=== PATIENT | male | born 1955 | race Caucasian/White ===

== ENCOUNTER 2018-03-21 15:53 | Emergency (ER) | payer OTHER ==
[~2018-03-21] VITALS: Ht 160 cm; Wt 59.0 kg
[~2018-03-21 15:53] MED LIST: Bactrim Ds Tab1 EACH PO; CLIN300 PO; DOXY100 PO; Keflex500 MG PO; MECL25 PO; METF500 PO; NAPR500 PO; OXYACE5T PO; TRAM50 PO
[2018-03-21 16:37] LABS: BASOPHILS ABSOLUTE AUTO 0.02 K/mm3 (0.00-0.23); BASOPHILS PERCENT AUTO 0 % (0-2); EOSINOPHILS ABSOLUTE AUTO 0.21 K/mm3 (0.00-0.68); EOSINOPHILS PERCENT AUTO 4 % (0-6); Hemoglobin 14.5 g/dL (13.5-17.5); IMMATURE GRAN ABSOLUTE AUTO 0.02 K/mm3 (0.00-0.10); IMMATURE GRAN PERCENT AUTO 0 % (0-1); LYMPHOCYTES ABSOLUTE AUTO 1.15 K/mm3 (0.84-5.20); LYMPHOCYTES PERCENT AUTO 20 % (21-46); MONOCYTES ABSOLUTE AUTO 0.85 K/mm3 (0.16-1.47); MONOCYTES PERCENT AUTO 15 % (4-13); Mean Corpuscular HGB 31.2 pg (26.0-34.0); Mean Corpuscular HGB Conc 34.5 g/dL (31.5-36.5); Mean Corpuscular Volume 90 fL (80-100); Mean Platelet Volume 10.5 fL (9.1-12.4); NEUTROPHILS ABSOLUTE AUTO 3.61 K/mm3 (1.96-9.15); NEUTROPHILS PERCENT AUTO 62 % (41-73); Platelet Count 218 K/mm3 (150-400); RDW Standard Deviation 39.8 fL (35.1-46.3); Red Blood Cell Count 4.65 M/mm3 (4.30-5.90); White Blood Cell Count 5.86 K/mm3 (4.00-11.30)
[2018-03-21 16:57] LABS: Alanine Aminotransfer (ALT/SGP 36 U/L (12-78); Albumin, Blood 3.8 g/dL (3.4-5.0); Albumin/Globulin Ratio 1.2 (0.8-1.8); Alk Phos 88 U/L (50-136); Anion Gap 8 mmol/L (6-16); Aspartate Aminotrans (AST/SGOT 32 U/L (12-37); Bilirubin, Total 0.4 mg/dL (0.1-1.0); Blood Urea Nitrogen 14 mg/dL (8-24); Bun/Creatinine Ratio 12.3 (12.0-20.0); CO2, Blood 25 mmol/L (21-32); Calcium, Blood 8.6 mg/dL (8.5-10.1); Chloride, Blood 107 mmol/L (98-108); Creatinine, Blood 1.14 mg/dL (0.60-1.20); Globulin, Blood 3.3 g/dL (2.2-4.0); Glomerular Filtration Rate >60 (60-); Glucose, Blood 100 mg/dL (70-99); Sodium, Blood 140 mmol/L (136-145); Total Protein, Blood 7.1 g/dL (6.4-8.2); Troponin I <0.015 ng/mL (0.000-0.040)
[2018-03-21] MEDS ORDERED: ALBU90OI INH (18:27)
[2018-03-22] MEDS ORDERED: Prednisone50 MG PO (00:59)
== END 2018-03-21 18:55 | disposition home or self-care (01) ==
LOC: ER 15:53
PROVIDERS: Physician Assistant
DX: J06.9 Acute upper respiratory infection, unspecified (principal); E11.9 Type 2 diabetes mellitus without complications; F17.200 Nicotine dependence, unspecified, uncomplicated; Z79.51 Long term (current) use of inhaled steroids
CPT/HCPCS: 36415; 71046; 80053; 83880; 84484; 85025; 93005; 93010; 94640; 99284

== ENCOUNTER 2018-08-15 09:56 | Day surgery (SDC) | payer OTHER ==
[~2018-08-15] VITALS: Ht 160 cm; Wt 508.0 kg
[~2018-08-15 09:56] MED LIST changes: +ALBU90OI INH; +Prednisone50 MG PO
[2018-08-15] MEDS ORDERED: DULERA 100 MCG/13 GM INH (10:51)
[2018-08-15] MEDS ORDERED: SERT25 PO (10:52)
[2018-08-15] MEDS ORDERED: QUETIAPINE FUMA50 MG PO (10:52)
== END 2018-08-15 11:52 | disposition home or self-care (01) ==
LOC: ORSCSDS 09:56
PROVIDERS: Internal Medicine Gastroenterology
PROC: 0DBK8ZX Excision of Ascending Colon, Via Natural or Artificial Opening Endoscopic, Diagnostic (ICD-10-PCS; principal; 2018-08-15 11:30)
DX: Z12.11 Encounter for screening for malignant neoplasm of colon (principal); D12.2 Benign neoplasm of ascending colon; K64.8 Other hemorrhoids; B19.20 Unspecified viral hepatitis C without hepatic coma; J44.9 Chronic obstructive pulmonary disease, unspecified; E11.9 Type 2 diabetes mellitus without complications; F20.9 Schizophrenia, unspecified; F43.10 Post-traumatic stress disorder, unspecified; F17.210 Nicotine dependence, cigarettes, uncomplicated; Z79.899 Other long term (current) drug therapy
CPT/HCPCS: 82947; J7120

== ENCOUNTER 2019-02-07 19:10 | Emergency (ER) | payer OTHER ==
[~2019-02-07] VITALS: Ht 160 cm; Wt 56.7 kg
[~2019-02-07 19:10] MED LIST changes: +DULERA 100 MCG/13 GM INH; +Percocet 5-3251 EACH PO; +QUETIAPINE FUMA50 MG PO; +SERT25 PO
[2019-02-07 21:01] LABS: BASOPHILS ABSOLUTE AUTO 0.02 K/mm3 (0.00-0.23); BASOPHILS PERCENT AUTO 0 % (0-2); EOSINOPHILS ABSOLUTE AUTO 0.15 K/mm3 (0.00-0.68); EOSINOPHILS PERCENT AUTO 1 % (0-6); Hematocrit 39.6 % (37.0-53.0); Hemoglobin 12.9 g/dL (13.5-17.5); IMMATURE GRAN ABSOLUTE AUTO 0.04 K/mm3 (0.00-0.10); IMMATURE GRAN PERCENT AUTO 0 % (0-1); LYMPHOCYTES ABSOLUTE AUTO 1.11 K/mm3 (0.84-5.20); LYMPHOCYTES PERCENT AUTO 10 % (21-46); MONOCYTES ABSOLUTE AUTO 1.19 K/mm3 (0.16-1.47); MONOCYTES PERCENT AUTO 11 % (4-13); Mean Corpuscular HGB 30.4 pg (26.0-34.0); Mean Corpuscular HGB Conc 32.6 g/dL (31.5-36.5); Mean Corpuscular Volume 93 fL (80-100); Mean Platelet Volume 10.4 fL (9.1-12.4); NEUTROPHILS ABSOLUTE AUTO 8.28 K/mm3 (1.96-9.15); NEUTROPHILS PERCENT AUTO 77 % (41-73); Platelet Count 239 K/mm3 (150-400); RDW Coefficient Variation 12.1 % (11.7-14.2); RDW Standard Deviation 41.8 fL (35.1-46.3); Red Blood Cell Count 4.25 M/mm3 (4.30-5.90); White Blood Cell Count 10.79 K/mm3 (4.00-11.30)
[2019-02-07 21:23] LABS: Alanine Aminotransfer (ALT/SGP 25 U/L (12-78); Albumin, Blood 3.5 g/dL (3.4-5.0); Alk Phos 76 U/L (50-136); Anion Gap 9 mmol/L (6-16); Aspartate Aminotrans (AST/SGOT 20 U/L (12-37); Bilirubin, Total 0.6 mg/dL (0.1-1.0); Blood Urea Nitrogen 24 mg/dL (8-24); Bun/Creatinine Ratio 30.4 (12.0-20.0); CO2, Blood 24 mmol/L (21-32); Calcium, Blood 8.8 mg/dL (8.5-10.1); Chloride, Blood 104 mmol/L (98-108); Creatinine, Blood 0.79 mg/dL (0.60-1.20); Globulin, Blood 3.6 g/dL (2.2-4.0); Glomerular Filtration Rate >60 (60-); Glucose, Blood 160 mg/dL (70-99); Potassium, Blood 3.9 mmol/L (3.5-5.5); Sodium, Blood 137 mmol/L (136-145); Total Protein, Blood 7.1 g/dL (6.4-8.2)
[2019-02-07] MEDS ORDERED: CEPH500 PO (21:37)
== END 2019-02-07 21:54 | disposition home or self-care (01) ==
LOC: ER 19:10
PROVIDERS: Physician Assistant
DX: L03.115 Cellulitis of right lower limb (principal); V17.4XXA Pedal cycle driver injured in collision with fixed or stationary object in traffic accident, initial encounter; Z88.8 Allergy status to other drugs, medicaments and biological substances; Z79.899 Other long term (current) drug therapy; E11.9 Type 2 diabetes mellitus without complications; F17.210 Nicotine dependence, cigarettes, uncomplicated
CPT/HCPCS: 80053; 85025; 85651; 86140; 96365; 99283-25; J0690

== ENCOUNTER 2019-04-22 20:13 | Emergency (ER) | payer OTHER ==
[~2019-04-22] VITALS: Ht 160 cm; Wt 55.8 kg
[~2019-04-22 20:13] MED LIST changes: +CEPH500 PO
[2019-04-22 21:57] LABS: BASOPHILS ABSOLUTE AUTO 0.04 K/mm3 (0.00-0.23); BASOPHILS PERCENT AUTO 1 % (0-2); EOSINOPHILS ABSOLUTE AUTO 0.38 K/mm3 (0.00-0.68); EOSINOPHILS PERCENT AUTO 6 % (0-6); Hemoglobin 14.5 g/dL (13.5-17.5); IMMATURE GRAN ABSOLUTE AUTO 0.01 K/mm3 (0.00-0.10); IMMATURE GRAN PERCENT AUTO 0 % (0-1); LYMPHOCYTES ABSOLUTE AUTO 2.17 K/mm3 (0.84-5.20); LYMPHOCYTES PERCENT AUTO 32 % (21-46); MONOCYTES ABSOLUTE AUTO 1.04 K/mm3 (0.16-1.47); MONOCYTES PERCENT AUTO 15 % (4-13); Mean Corpuscular HGB 30.6 pg (26.0-34.0); Mean Corpuscular HGB Conc 32.2 g/dL (31.5-36.5); Mean Corpuscular Volume 95 fL (80-100); Mean Platelet Volume 10.9 fL (9.1-12.4); NEUTROPHILS ABSOLUTE AUTO 3.16 K/mm3 (1.96-9.15); NEUTROPHILS PERCENT AUTO 47 % (41-73); Platelet Count 187 K/mm3 (150-400); RDW Coefficient Variation 12.6 % (11.7-14.2); RDW Standard Deviation 44.5 fL (35.1-46.3); Red Blood Cell Count 4.74 M/mm3 (4.30-5.90)
[2019-04-22 22:35] LABS: Alanine Aminotransfer (ALT/SGP 46 U/L (12-78); Albumin, Blood 3.5 g/dL (3.4-5.0); Alk Phos 84 U/L (50-136); Anion Gap 7 mmol/L (6-16); Aspartate Aminotrans (AST/SGOT 50 U/L (12-37); Bilirubin, Total 0.4 mg/dL (0.1-1.0); Blood Urea Nitrogen 23 mg/dL (8-24); Bun/Creatinine Ratio 27.3 (12.0-20.0); CO2, Blood 25 mmol/L (21-32); Calcium, Blood 8.8 mg/dL (8.5-10.1); Chloride, Blood 109 mmol/L (98-108); Creatinine, Blood 0.84 mg/dL (0.60-1.20); Globulin, Blood 3.6 g/dL (2.2-4.0); Glomerular Filtration Rate >60 (60-); Glucose, Blood 127 mg/dL (70-99); Potassium, Blood 5.3 mmol/L (3.5-5.5); Sodium, Blood 141 mmol/L (136-145); Total Protein, Blood 7.1 g/dL (6.4-8.2); Troponin I <0.015 ng/mL (0.000-0.040)
[2019-04-23] MEDS ORDERED: LORA2 PO (00:28)
[2019-04-23] MEDS ORDERED: CETI5 PO (01:36)
[2019-04-23] MEDS ORDERED: BENZ100A PO (01:36)
== END 2019-04-23 01:49 | disposition home or self-care (01) ==
LOC: ER 20:13
PROVIDERS: Emergency Medicine
DX: J40 Bronchitis, not specified as acute or chronic (principal); J30.2 Other seasonal allergic rhinitis; Z88.8 Allergy status to other drugs, medicaments and biological substances; Z79.899 Other long term (current) drug therapy; E11.9 Type 2 diabetes mellitus without complications; F17.210 Nicotine dependence, cigarettes, uncomplicated
CPT/HCPCS: 36415; 71046; 80053; 84484; 85025; 94640; 96374; 99285-25; J2930

== ENCOUNTER 2020-06-20 15:58 | Emergency (ER) | payer OTHER ==
[~2020-06-20] VITALS: Ht 160 cm; Wt 56.7 kg
[~2020-06-20 15:58] MED LIST changes: +BENZ100A PO; +CETI5 PO; +LORA2 PO; +Permethrin60 GM TOP
[2020-06-20] MEDS ORDERED: ALBENDAZOLE200 MG PO (16:57)
[2020-06-20] MEDS ORDERED: Permethrin60 GM TOP (16:57)
[2020-07-02] MEDS ORDERED: OXYC5 PO (11:02)
== END 2020-06-20 17:09 | disposition home or self-care (01) ==
LOC: ER 15:58
DX: B76.9 Hookworm disease, unspecified (principal); B86 Scabies; F17.210 Nicotine dependence, cigarettes, uncomplicated; Z88.8 Allergy status to other drugs, medicaments and biological substances
CPT/HCPCS: 99282

== ENCOUNTER 2020-10-12 13:02 | Inpatient (IN) | payer OTHER ==
[~2020-10-12] VITALS: Ht 160 cm; Wt 56.7 kg
[~2020-10-12 13:02] MED LIST changes: +ALBENDAZOLE200 MG PO; +OXYC5 PO
[2020-10-12 13:36] LABS: BASOPHILS ABSOLUTE AUTO 0.04 K/mm3 (0.00-0.23); BASOPHILS PERCENT AUTO 0 % (0-2); EOSINOPHILS ABSOLUTE AUTO 0.01 K/mm3 (0.00-0.68); EOSINOPHILS PERCENT AUTO 0 % (0-6); Hematocrit 37.4 % (37.0-53.0); Hemoglobin 12.8 g/dL (13.5-17.5); IMMATURE GRAN ABSOLUTE AUTO 0.07 K/mm3 (0.00-0.10); IMMATURE GRAN PERCENT AUTO 0 % (0-1); LYMPHOCYTES ABSOLUTE AUTO 1.09 K/mm3 (0.84-5.20); LYMPHOCYTES PERCENT AUTO 7 % (21-46); MONOCYTES ABSOLUTE AUTO 1.71 K/mm3 (0.16-1.47); MONOCYTES PERCENT AUTO 11 % (4-13); Mean Corpuscular HGB 30.9 pg (26.0-34.0); Mean Corpuscular HGB Conc 34.2 g/dL (31.5-36.5); Mean Corpuscular Volume 90 fL (80-100); Mean Platelet Volume 10.1 fL (9.1-12.4); NEUTROPHILS ABSOLUTE AUTO 13.26 K/mm3 (1.96-9.15); NEUTROPHILS PERCENT AUTO 82 % (41-73); Platelet Count 232 K/mm3 (150-400); RDW Coefficient Variation 11.8 % (11.7-14.2); RDW Standard Deviation 39.2 fL (35.1-46.3); Red Blood Cell Count 4.14 M/mm3 (4.30-5.90); White Blood Cell Count 16.18 K/mm3 (4.00-11.30)
[2020-10-12 14:04] LABS: Alanine Aminotransfer (ALT/SGP 26 U/L (12-78); Albumin, Blood 3.4 g/dL (3.4-5.0); Albumin/Globulin Ratio 1.1 (0.8-1.8); Alk Phos 86 U/L (50-136); Anion Gap 6 mmol/L (6-16); Aspartate Aminotrans (AST/SGOT 24 U/L (12-37); Bilirubin, Total 1.1 mg/dL (0.1-1.0); Blood Urea Nitrogen 15 mg/dL (8-24); Bun/Creatinine Ratio 16.9 (12.0-20.0); CO2, Blood 25 mmol/L (21-32); Calcium, Blood 8.3 mg/dL (8.5-10.1); Chloride, Blood 103 mmol/L (98-108); Creatinine, Blood 0.89 mg/dL (0.60-1.20); Globulin, Blood 3.2 g/dL (2.2-4.0); Glomerular Filtration Rate >60 (60-); Glucose, Blood 129 mg/dL (70-99); Potassium, Blood 4.2 mmol/L (3.5-5.5); Sodium, Blood 134 mmol/L (136-145); Total Protein, Blood 6.6 g/dL (6.4-8.2)
[2020-10-12] MEDS ORDERED: ALBU90OI INH (18:16)
--- NOTE | 2020-10-12 18:45 | NUR ---
RECIEVED REPORT FROM JIMMIE @ 1720, AIR TRAFFIC COORDINATOR. PATIENT ARRIVED TO ROOM 326 AT 1740 AND PIVOT TRANSFERED TO HOSPITAL BED WITH ONE PERSON ASSIST. L KNEE RED AND SWOLLEN. PIC TAKEN AND PLACED IN CHART. VITALS OBTAINED, FEBRILE. TYLENOL #3 ADMINISTERED FOR PAIN HOWEVER SHOULD ASSIST WITH FEVER MANAGEMENT. IV ABX RUNNING PER EMAR. FLU VACCINE REFUSED. LOVENOX GIVEN. PATIENT IS AWARE THAT UA IS NEEDED, AWAITING URINE SPECIMEN. PATIENT ADMITS TO USING METH USUALLY DAILY AND [place] OCCASIONALLY. PLEASANT AND COOPERATIVE. ASSESSMENT COMPLETE. STATES ONLY HOME MED IS ALBUTEROLINHAILER. PATIENT IN BED RESTING AFTER EATING ADA MEAL.
[2020-10-13 02:27] LABS: Source, Urine Voided
[2020-10-13 02:30] LABS: Bilirubin, Urine Neg (Neg); Blood, Urine Neg (Neg); Glucose Qualitative, Urine Neg (Neg); Ketones, Urine Neg (Neg); Leukocyte Esterase, Urine 2+ (Neg); Nitrite, Urine Pos (Neg); Protein, Urine Neg (Neg); Specific Gravity, Urine 1.015 (1.003-1.022); Urobilinogen, Urine NORM (Normal)
[2020-10-13 02:35] LABS: Appearance, Urine Hazy (Clear); Color, Urine Yellow (P-Yellow)
[2020-10-13 02:42] LABS: Bacteria Many /hpf; Mucus Light (0-Heavy); Red Blood Cells, Urine Not Seen /hpf (0-2); Squamous Epithelial Cells Not Seen /hpf (Few); White Blood Cells, Urine 50-100 /hpf (0-5)
[2020-10-13 02:49] LABS: U Amphetamine Screen DETECTED; U Methamphetamine Screen DETECTED
[2020-10-13 02:50] LABS: U Barbituate Screen Not Detected; U Benzodiazapine Screen Not Detected; U Buprenorphine Screen Not Detected; U Cannabinoids Screen Not Detected; U Cocaine Screen Not Detected; U Methadone Screen Not Detected; U Opiates Screen DETECTED; U Oxycodone Screen Not Detected; U Phencyclidine Screen Not Detected; U Propoxyphene Screen Not Detected
[2020-10-13 05:23] LABS: BASOPHILS ABSOLUTE AUTO 0.02 K/mm3 (0.00-0.23); BASOPHILS PERCENT AUTO 0 % (0-2); EOSINOPHILS ABSOLUTE AUTO 0.03 K/mm3 (0.00-0.68); EOSINOPHILS PERCENT AUTO 0 % (0-6); Hematocrit 38.4 % (37.0-53.0); Hemoglobin 12.7 g/dL (13.5-17.5); IMMATURE GRAN ABSOLUTE AUTO 0.04 K/mm3 (0.00-0.10); IMMATURE GRAN PERCENT AUTO 0 % (0-1); LYMPHOCYTES ABSOLUTE AUTO 1.07 K/mm3 (0.84-5.20); LYMPHOCYTES PERCENT AUTO 10 % (21-46); MONOCYTES ABSOLUTE AUTO 1.34 K/mm3 (0.16-1.47); MONOCYTES PERCENT AUTO 13 % (4-13); Mean Corpuscular HGB 30.7 pg (26.0-34.0); Mean Corpuscular HGB Conc 33.1 g/dL (31.5-36.5); Mean Corpuscular Volume 93 fL (80-100); Mean Platelet Volume 10.7 fL (9.1-12.4); NEUTROPHILS ABSOLUTE AUTO 7.94 K/mm3 (1.96-9.15); NEUTROPHILS PERCENT AUTO 76 % (41-73); Platelet Count 192 K/mm3 (150-400); RDW Coefficient Variation 11.9 % (11.7-14.2); RDW Standard Deviation 40.2 fL (35.1-46.3); Red Blood Cell Count 4.14 M/mm3 (4.30-5.90); White Blood Cell Count 10.44 K/mm3 (4.00-11.30)
[2020-10-13 05:29] LABS: Anion Gap 5 mmol/L (6-16); Blood Urea Nitrogen 17 mg/dL (8-24); Bun/Creatinine Ratio 22.1 (12.0-20.0); CO2, Blood 27 mmol/L (21-32); Calcium, Blood 8.1 mg/dL (8.5-10.1); Chloride, Blood 104 mmol/L (98-108); Creatinine, Blood 0.77 mg/dL (0.60-1.20); Glomerular Filtration Rate >60 (60-); Glucose, Blood 133 mg/dL (70-99); Potassium, Blood 3.9 mmol/L (3.5-5.5); Sodium, Blood 136 mmol/L (136-145)
--- NOTE | 2020-10-13 05:33 | NUR ---
65 year old Male with fever, homelessness & lt knee cellulitis, daily meth abuse admitted to tx cellulitis. PT has multiple scabbed areas bilat upper & lower extremities. He has swollen red hot lt knee. PT was medicated for pain with tylenol # 3 prior to my shift & has not requested again this shift. He has flat affect but often used cellphone to call friends. Someone brought ice cream & cigarettes to floor for him, cigarettes put in PT's locked drawer. PT tox screen shows opiates & meth, amphetamines. Reportedly used day prior to admission last. Recieved rocephin to tx cellulitis. PT repoted to day RN he has hookworms despite 1 month tx. none observed. SW referral for assist with dc plan present. wbc normalized but low grade fever persists.
--- NOTE | 2020-10-13 09:45 | NUR ---
PT GAVE HYDRODYNAMICIST PERMISSION FOR CARE AT 0730 ON 10/13/20.
--- NOTE | 2020-10-13 09:50 | NUR ---
PT TO IMAGING FOR CT.
--- NOTE | 2020-10-13 18:12 | NUR ---
SHIFT SUMMARY- PT A/O X4, SBA UP IN ROOM. PT MEDICATED X1 FOR PAIN TO LEFT KNEE. PT WITH LEFT KNEE CELLULITIS. DR ESCALANTE CONSULTED TODAY AND PT TO BE NPO AFTER MIDNIGHT FOR POSSIBLE PROCEDURE TOMORROW. LS CEAR, ON RA. HRR. NO OTHER ACUTE CHANGES THIS SHIFT.
[2020-10-14 05:42] LABS: BASOPHILS ABSOLUTE AUTO 0.02 K/mm3 (0.00-0.23); BASOPHILS PERCENT AUTO 0 % (0-2); EOSINOPHILS ABSOLUTE AUTO 0.18 K/mm3 (0.00-0.68); EOSINOPHILS PERCENT AUTO 2 % (0-6); Hematocrit 38.1 % (37.0-53.0); Hemoglobin 12.8 g/dL (13.5-17.5); IMMATURE GRAN ABSOLUTE AUTO 0.04 K/mm3 (0.00-0.10); IMMATURE GRAN PERCENT AUTO 0 % (0-1); LYMPHOCYTES ABSOLUTE AUTO 1.36 K/mm3 (0.84-5.20); LYMPHOCYTES PERCENT AUTO 15 % (21-46); MONOCYTES ABSOLUTE AUTO 1.31 K/mm3 (0.16-1.47); MONOCYTES PERCENT AUTO 15 % (4-13); Mean Corpuscular HGB 30.9 pg (26.0-34.0); Mean Corpuscular HGB Conc 33.6 g/dL (31.5-36.5); Mean Corpuscular Volume 92 fL (80-100); Mean Platelet Volume 10.3 fL (9.1-12.4); NEUTROPHILS ABSOLUTE AUTO 5.99 K/mm3 (1.96-9.15); NEUTROPHILS PERCENT AUTO 67 % (41-73); Platelet Count 199 K/mm3 (150-400); RDW Coefficient Variation 11.7 % (11.7-14.2); RDW Standard Deviation 40.1 fL (35.1-46.3); Red Blood Cell Count 4.14 M/mm3 (4.30-5.90)
[2020-10-14 06:09] LABS: Anion Gap 5 mmol/L (6-16); Blood Urea Nitrogen 19 mg/dL (8-24); Bun/Creatinine Ratio 23.7 (12.0-20.0); CO2, Blood 27 mmol/L (21-32); Calcium, Blood 8.4 mg/dL (8.5-10.1); Chloride, Blood 107 mmol/L (98-108); Glomerular Filtration Rate >60 (60-); Glucose, Blood 86 mg/dL (70-99); Potassium, Blood 4.4 mmol/L (3.5-5.5); Sodium, Blood 139 mmol/L (136-145)
--- NOTE | 2020-10-14 06:31 | NUR ---
SHIFT SUMMARY PT IS A 65 Y/O MALE, ADMITTED FOR L KNEE CELLULITIS. HE IS A&O X 4, 1PA TO THE BATHROOM WITH A CANE. NO C/O ACUTE PAIN, NAUSEA OR SOB. VITAL SIGNS STABLE. PT HAS BEEN NPO SINCE MIDNIGHT IN PREP FOR A POSSIBLE PROCEDURE TODAY. NO ACUTE CHANGES IN PT CONDITION NOTED. WILL CONTINUE TO MONITOR AND TREAT PER EMAR UNTIL HAND OFF TO DAY SHIFT RN.
[2020-10-14 11:54] LABS: Vancomycin, Trough 10.6 ug/mL (5.0-10.0)
--- NOTE | 2020-10-14 17:23 | NUR ---
SHIFT SUMMARY- PT A/O, PLESANT AND COOPERATIVE. EATING AND DRINKING WELL. RECIEVING IV ABX. R KNEE REMAINS SWOLLEN, RED, AND HOT TO THE TOUCH. PT RECIEVING PAIN MEDICATIONS NEEDED. HE IS EATING AND DRINKING WELL. NASAL SWAB TAKEN AND SENT TO LAB. PT IS USING URINAL. FRIEND AT BEDSIDE.
--- NOTE | 2020-10-15 06:17 | NUR ---
SHIFT SUMMARY PATIENT ALERT AND ORIENTED. PATIENT'S L KNEE IS STILL SWOLLEN AND IS VERY RED AND WARM TO THE TOUCH. PATIENT REPORTS THAT IT DOES NOT FEEL WARM IT DID YESTERDAY. PATIENT MEDICATED FOR PAIN PER EMAR. PATIENT WAS ABLE TO SLEEP FAIRLY WELL AND HAD MINIMAL NEEDS OVERNIGHT. IV PATENT AND FLUSHED. BED IN LOWEST POSITION WITH WHEELS LOCKED. CALL LIGHT WITHIN REACH. REPORT GIVEN TO ONCOMING RN.
[2020-10-15 11:38] LABS: Creatinine, Blood 0.73 mg/dL (0.60-1.20); Vancomycin, Trough 12.7 ug/mL (5.0-10.0)
--- NOTE | 2020-10-15 17:03 | NUR ---
SHIFT SUMMARY PT AWAKE AT START OF SHIFT, RESTING QUIETLY WATCHING TV. PT ADMITTED FOR L KNEE CELLULITIS. PER SHIFT REPORT, REDNESS AND SWELLING IMPROVING WITH ANTIBIOTICS. PT SEEN BY DR ESCALANTE TO DETERMINE PLAN OF CARE AND IF I&D WILL BE NEEDED. REDNESS AND SWELLING HAD BEEN IMPROVING AND WAS WELL INSIDE MARKED AREA AT START OF SHIFT, BUT HAS CONTINUED TO EXCEED LINES AND GO UP AND DOWN L LEG. REDNESS AND SWELLING ON KNEE ITSELF HAS ALSO INCREASED. PT CONTINUES TO RECEIVE IV ABX, WHICH SEEMED TO BE EFFECTIVE UNTIL TODAY. PT WAITING TO BE SEEN BY DR ESCALANTE AGAIN TO ASSESS IF ASPIRATION OF SITE WILL BE NEEDED. PT WITH HX OF IV DRUG AND METH ABUSE. PT USES CANE AT BASELINE WITH 1P SBA TO BTHRM. A&O, ABLE TO MAKE NEEDS KNOWN. WATCHING TV BETWEEN NAPS AND TALKING ON PHONE. CALL LT IN REACH.
--- NOTE | 2020-10-15 18:21 | NUR ---
DR CARRINGTON NOTIFIED OF INCREASED REDNESS AND SWELLING TO L KNEE. PT RECEIVING IV ROCEPHIN AND VANCO PER PHARMACY. DR ESCALANTE IN RECENTLY TO ASSESS PT'S KNEE WELL. ROSETTE WRAP PLACED BY DR ESCALANTE AND ICE PACK ORDERED TO BE PUT ON KNEE. PT UP INDEPENDENTLY TO BTHRM AFTER ROSETTE WRAP PLACED. ICE PACK NOW ON L KNEE.
--- NOTE | 2020-10-16 06:58 | NUR ---
SHIFT SUMMARY PATIENT ALERT AND ORIENTED. MEDICATED ONCE PER EMAR FOR PAIN. PATIENT HAD HIS LEFT KNEE WRAPPED IN AN ROSETTE BANDAGE TO HELP KEEP THE SWELLING DOWN, BUT THE PATIENT REMOVED IT DUE TO THE PAIN IT CAUSED FROM THE PRESSURE PUT ON THE KNEE. PATIENT ENCOURAGED TO CONTINUE ICING HIS KNEE TO PREVENT FURTHER SWELLING. IV PATENT AND FLUSHED. BED IN LOWEST POSITION WHITH WHEELS LOCKED. CALL LIGHT WITHIN REACH. REPORT GIVEN TO ONCOMING RN.
--- NOTE | 2020-10-16 19:30 | NUR ---
1700 ASSUMED CARE OF PT FROM [facility] RN, YOGI. PT UP TO BTHRM USING CANE FROM HOME. DR ESCALANTE IN THIS AM TO ASSESS L KNEE CELLULITIS. PT HAD REMOVED ROSETTE WRAP LAST NIGHT, THAT DR ESCALANTE HAD PLACED DURING THE DAY. PT C/O ROSETTE WRAP BEING TOO TIGHT. REDNESS AND SWELLING TO L KNEE WAS MUCH IMPROVED TODAY FROM YESTERDAY. DR ESCALANTE REPLACED ROSETTE WRAP AGAIN. ICE PACK PLACED PER DR ESCALANTE. PT TONIGHT WANTING ROSETTE WRAP OFF AGAIN HE STATES IT IS TOO TIGHT. DR ESCALANTE STATED THAT SHE WILL NOT NEED TO ASPIRATE THE KNEE. INFECTION AND SWELLING RESOLVING WITH ABX. NO FLUID POCKET PRESENT ON KNEE TO ASPIRATE. PT IS GETTING TIRED OF HOSPITAL STAY, WANTING TO GO HOME. REPORTS THAT HE IS USUALLY MORE ACTIVE AND DOES NOT LIKE TO LAY AROUND. REPORT GIVEN TO ONCOMING RN. CALL LT IN REACH. DENIED FURTHER NEEDS.
--- NOTE | 2020-10-17 06:44 | NUR ---
SHIFT SUMMARY PATIENT ALERT AND ORIENTED. MEDICATED ONCE PER EMAR FOR PAIN IN HIS KNEE. PATIENT AMBULATED AROUND THE UNIT ACCOMPANIED BY HIS ASSEMBLY INSPECTOR AND TOLERATED WELL. STATED THAT HIS KNEE WAS QUITE SORE AFTER. PATIENT SLEPT ALL NIGHT. IV PATENT AND FLUSHED. BED IN LOWEST POSITION WITH WHEELS LOCKED. CALL LIGHT WITHIN REACH. REPORT GIVEN TO ONCMARILU WOMACK.
--- NOTE | 2020-10-17 08:00 | NUR ---
PT PLEASANT TALKATIVE. LEFT KNEE CELLULITIS IS RECEADING BEHIND ESPINOSA. PT STATES LOW PAIN. REQUEST NO MEDS . H/R REG, NO MURMER NOTED. NO TELE. LUNGS CLEAR, RESP EASY, UNLABORED. ON R.A. BT X4 LAST BM YEST. VOIDS URINAL OR SBA WITH FWW TO BATHROOM. BED IN LOW POSITION, CALL LITE IN REACH, CALLS APPROP
--- NOTE | 2020-10-17 09:13 | NUR ---
permission for care student nurse, jen aburto, received permission to provide care to patient on 10/17/2020
[2020-10-17] MEDS ORDERED: ACET325 PO (11:52)
[2020-10-17] MEDS ORDERED: CEPH500 PO (11:53)
[2020-10-17] MEDS ORDERED: VISBIOME PROBIOTIC PO (11:53)
--- NOTE | 2020-10-17 14:55 | NUR ---
PT IV PULLED INTACT. NO TELE. DISCHARGE REVIEWED. PT VERBALIZED UMDERSTANDING MEDS AND INST. PT OUT DOOR AT 1435. HE GRACIOUSLY DONATED POCKET FULL OF CHANGE TO [employer].
== END 2020-10-17 14:37 | disposition home or self-care (01) | DRG 872 ==
LOC: ER 13:02 → MEDS 15:56 → ENPENDDIS 10-17 12:03 → MEDS 10-17 14:37
PROVIDERS: Physician Assistant; ADMIT Internal Medicine
DX: A40.0 Sepsis due to streptococcus, group A (principal); L03.116 Cellulitis of left lower limb; L02.416 Cutaneous abscess of left lower limb; E11.9 Type 2 diabetes mellitus without complications; F19.10 Other psychoactive substance abuse, uncomplicated; F43.10 Post-traumatic stress disorder, unspecified; F20.9 Schizophrenia, unspecified; F17.210 Nicotine dependence, cigarettes, uncomplicated; Z59.0 Homelessness; Z91.14 Patient's other noncompliance with medication regimen; Z86.19 Personal history of other infectious and parasitic diseases
CPT/HCPCS: 36415; 71045; 73562-LT; 73701; 80048; 80053; 80202; 81001; 82565; 82947; 83036; 83605; 85025; 85651; 86140; 87040; 87070; 87086; 87147; 87205; 90471; 90714; 96365; 96375; 97116; 97161; 99285-25; A9270; A9270-GY; J0690; J0696; J1650; J2405; J3370; J7030; J7050; Q9967

== ENCOUNTER 2024-10-30 15:08 | Inpatient (IN) | payer MEDICARE, OTHER ==
[~2024-10-30] VITALS: Ht 154.9 cm; Wt 56.7 kg
[~2024-10-30 15:08] MED LIST changes: +ACET325 PO; +VISBIOME PROBIOTIC PO
[2024-10-30 16:54] LABS: Albumin, Blood 2.8 g/dL (3.4-5.0); Albumin/Globulin Ratio 0.7 (0.8-1.8); Bilirubin, Total 0.8 mg/dL (0.1-1.0); Bun/Creatinine Ratio 25.8 (12.0-20.0); Calcium, Blood 8.3 mg/dL (8.5-10.1); Creatinine, Blood 0.85 mg/dL (0.60-1.20); Potassium, Blood 4.7 mmol/L (3.5-5.5); Total Protein, Blood 6.8 g/dL (6.4-8.2)
[2024-10-30] MEDS ORDERED: CefTRIAXone Sodium 1,000 MG in NS 100 ML IV ONE (17:25)
[2024-10-30] MEDS ORDERED: MethylPREDNISolone Sod Succ 125 MG Vial IV ONE (17:25)
[2024-10-30] MEDS ORDERED: Ipratropium/Albuterol SulF 2.5-0.5MG/3 ML Amp INH ONE ×2 (17:25)
[2024-10-30 18:22] LABS: BASOPHILS ABSOLUTE AUTO 0.02 K/mm3 (0.00-0.23); BASOPHILS PERCENT AUTO 0 % (0-2); EOSINOPHILS ABSOLUTE AUTO 0.02 K/mm3 (0.00-0.68); EOSINOPHILS PERCENT AUTO 0 % (0-6); Hematocrit 37.8 % (37.0-53.0); Hemoglobin 12.8 g/dL (13.5-17.5); IMMATURE GRAN ABSOLUTE AUTO 0.04 K/mm3 (0.00-0.10); IMMATURE GRAN PERCENT AUTO 1 % (0-1); LYMPHOCYTES PERCENT AUTO 25 % (21-46); MONOCYTES ABSOLUTE AUTO 1.15 K/mm3 (0.16-1.47); MONOCYTES PERCENT AUTO 18 % (4-13); Mean Corpuscular HGB 31.3 pg (26.0-34.0); Mean Corpuscular HGB Conc 33.9 g/dL (31.5-36.5); Mean Corpuscular Volume 92 fL (80-100); Mean Platelet Volume 10.3 fL (9.1-12.4); NEUTROPHILS ABSOLUTE AUTO 3.54 K/mm3 (1.96-9.15); NEUTROPHILS PERCENT AUTO 56 % (41-73); Platelet Count 241 K/mm3 (150-400); RDW Coefficient Variation 11.5 % (11.7-14.2); RDW Standard Deviation 39.2 fL (35.1-46.3); Red Blood Cell Count 4.09 M/mm3 (4.30-5.90); White Blood Cell Count 6.37 K/mm3 (4.00-11.30)
[2024-10-30] MEDS ORDERED: Ipratropium/Albuterol SulF 2.5-0.5MG/3 ML Amp INH SCH (20:00)
[2024-10-30] MEDS ORDERED: FLU VACC TS2024-25(6MOS UP)/PF 45 MCG/0.5 ML SYRINGE IM SCH (20:00)
[2024-10-30] MEDS ORDERED: Albuterol 2.5 MG/3 ML VIAL INH PRN (20:05)
[2024-10-30] MEDS ORDERED: Lactobacil 2-S.Thermo-Bifido 1 1 Cap PO SCH (21:00)
[2024-10-30] MEDS ORDERED: Azithromycin 500 MG in NS 250 ML IV SCH (21:00)
[2024-10-30 21:39] VITALS: BP 107/73
[2024-10-30] MEDS ORDERED: NS 250 ML IV PRN (23:05)
[2024-10-31 06:08] LABS: Hematocrit 38.7 % (37.0-53.0); Hemoglobin 13.2 g/dL (13.5-17.5); Mean Corpuscular HGB 31.3 pg (26.0-34.0); Mean Corpuscular HGB Conc 34.1 g/dL (31.5-36.5); Mean Corpuscular Volume 92 fL (80-100); Mean Platelet Volume 10.2 fL (9.1-12.4); Platelet Count 272 K/mm3 (150-400); RDW Coefficient Variation 11.4 % (11.7-14.2); RDW Standard Deviation 38.6 fL (35.1-46.3); Red Blood Cell Count 4.22 M/mm3 (4.30-5.90); White Blood Cell Count 5.04 K/mm3 (4.00-11.30)
[2024-10-31 06:20] VITALS: BP 116/81
--- NOTE | 2024-10-31 06:26 | NUR ---
SHIFT SUMMARY: PT IS A 69 YO FULL CODE MALE WHO WAS ADMITTED FOR COPD EXACERBATION AND LLL PNEUMONIA. PT IS A&OX4 AND HOMELESS. PT S ON TELE AND SR IN THE 80'S BUT DID HAVE 5 SECONDS OF SVT IN THE 170'S PER COLD TYPE ARTIST. PT HAS AN IV IN [place]. PT IS ON 4L NC. PT IS IND AND CONT BUT NEEDS A UTOX URINE SAMPLE COLLECTED. PT IS CC DIET AND TYPE 2 DIABETIC WI AC&HS CHECKS. PT HAS BEEN COOPERATIVE W/CARE AND IS NOW RESTING. PT MAKES NEEDS KNOWN AND USES CALL LIGHT NEEDED.
[2024-10-31 06:28] LABS: Bun/Creatinine Ratio 35.6 (12.0-20.0); Calcium, Blood 8.8 mg/dL (8.5-10.1); Creatinine, Blood 0.82 mg/dL (0.60-1.20); Potassium, Blood 4.5 mmol/L (3.5-5.5)
[2024-10-31] MEDS ORDERED: Acetaminophen 500 MG Tab PO PRN (07:10)
[2024-10-31] MEDS ORDERED: Polyethylene Glycol 3350 17 gm PO PRN (07:15)
[2024-10-31 07:22] VITALS: BP 123/85
[2024-10-31] MEDS ORDERED: Mometasone/Formoterol MDI 200/5 mcg 13 GM INH SCH (07:30)
[2024-10-31] MEDS ORDERED: Insulin Human Lispro 100 Units/ML 3ML Syringe SC SCH ×2 (07:30)
[2024-10-31] MEDS ORDERED: MethylPREDNISolone Sod Succ 125 MG Vial IV SCH ×2 (08:00)
[2024-10-31] MEDS ORDERED: GuaiFENesin 600 MG TabCR PO SCH (09:00)
[2024-10-31] MEDS ORDERED: Lactobacil 2-S.Thermo-Bifido 1 1 Cap PO SCH (09:00)
[2024-10-31] MEDS ORDERED: Enoxaparin 40 MG/0.4 ML SYR SC SCH (09:00)
[2024-10-31 15:11] VITALS: BP 109/81
--- NOTE | 2024-10-31 17:33 | NUR ---
SHIFT SUMMARY: PT AOX4 AND IND IN ROOM. ON 4L NC WITH CONT BI OX HOOKED UP CURRENTLY. SATTIN BETWEEN 90 AND 98 THROUGHOUT THE SHIFT. LUNGS STILL HAS CRACKLES AND APPEARS ANXIOUS BUT IS COOPERATIVE WITH CARE. BLOOD SUGARS HAVE BEEN STABLE AND CONTROLED WELL WITH INSULIN. TOLERATING DIET AND MEDICATIONS WELL. HAD A SHOWER TODAY AND IS FEELING BETTER AFTER. CURRENTLY RESTING IN BED, BED IN LOWEST POSITION AND CALL LIGHT IS IN REACH. CONTINUING CARE.
[2024-10-31] MEDS ORDERED: CefTRIAXone Sodium 1,000 MG in NS 100 ML IV SCH (18:00)
[2024-10-31] MEDS ORDERED: Docusate Sodium/Senna 1 Tab PO SCH (21:00)
[2024-10-31] MEDS ORDERED: PredniSONE 20 MG Tab PO SCH (21:35)
[2024-10-31] MEDS ORDERED: Azithromycin 250 MG Tab PO SCH (21:40)
--- NOTE | 2024-10-31 21:50 | NUR ---
CALLED HOSPITALIST. PT IV WENT BAD AND PT IS REFUSING ANOTHER IV START. PT WOULD LIKE MEDICATIONS TO BE GIVEN PO INSTEAD. I CALLED HOSPITALIST AT 2132 WHO WANTED ME TO INFORM THE PT THAT THE ORAL ANTIBIOTICS WILL NOT BE EFFECTIVE FOR HIS TREATMENT BUT ORAL ANTIBIOTIC AZITHROMYCIN WAS ORDERED FOR PO DAILY START NOW AND STEROID ALSO SWITCHED TO PO DAILY AND START NOW. SINCE PT HAS ALREADY RECIEVED ROCEPHIN TODAY HE SUGGESTED THAT THE PT'S PRIMARY DOCTOR CAN MAKE ADJUSTMENTS FOR PT NEEDED TOMORROW FOR ORAL MEDICATIONS.
[2024-10-31 23:48] LABS: U Amphetamine Screen DETECTED; U Barbituate Screen Not Detected; U Benzodiazapine Screen Not Detected; U Buprenorphine Screen Not Detected; U Cannabinoids Screen Not Detected; U Cocaine Screen Not Detected; U Methadone Screen Not Detected; U Methamphetamine Screen DETECTED; U Opiates Screen Not Detected; U Oxycodone Screen Not Detected; U Phencyclidine Screen Not Detected
[2024-11-01 03:53] VITALS: BP 141/95
--- NOTE | 2024-11-01 04:49 | NUR ---
SHIFT SUMM: PT IS A 69 YO FULL CODE WHO WAS ADMITTED FOR COPD EXACERBATION AND LLL PNEUMONIA. PT IS GRUMPY AT TIMES BUT MOSTLY COOPERATIVE WITH CARE. PT'S IV INFILTRATED AND PT REFUSED ANOTHER IV (ORAL MEDS HAVE BEEN SUBSTITUTED FOR THE AZITHROMYCIN AND STEROIDS). PT IS ON TELE IN NSR IN THE 80'S WITH 7 BEATS OF SVT IN THE 160'S WHILE PT WAS SLEEPING, CONT PULSE OX IS IN PLACE. PT IS A&0X4 W/AC BLOOD SUGARS. UTOX WAS SENT AND POS FOR METH AND AMPHENTAMINES. PT WAS NOT COOPERATIVE W/ LAB DRAW THIS MORNING AND WAS REFUSING. PT IS IND IN ROOM AND ON A CC DIET. PT HAS A HISTORY OF TYPE 2 DM, COPD, SMOKER, METH,HEP C+,SCHIZOPHRENIA AND HOMLESNESS. PT IS CURRENTLY ON 4L NC. WAITING FOR PLAN ON WHERE PT WILL D/C TOO. CALL LIGHT IN REACH.
[2024-11-01 05:48] LABS: Hematocrit 36.5 % (37.0-53.0); Hemoglobin 12.4 g/dL (13.5-17.5); Mean Corpuscular HGB 31.2 pg (26.0-34.0); Mean Corpuscular Volume 92 fL (80-100); Mean Platelet Volume 10.3 fL (9.1-12.4); Platelet Count 335 K/mm3 (150-400); RDW Coefficient Variation 11.5 % (11.7-14.2); RDW Standard Deviation 39.1 fL (35.1-46.3); Red Blood Cell Count 3.98 M/mm3 (4.30-5.90); White Blood Cell Count 18.44 K/mm3 (4.00-11.30)
[2024-11-01 06:29] LABS: Albumin, Blood 2.6 g/dL (3.4-5.0); Anion Gap 10 mmol/L (3-11); Blood Urea Nitrogen 39 mg/dL (8-24); Bun/Creatinine Ratio 43.6 (12.0-20.0); CO2, Blood 26 mmol/L (21-32); Calcium, Blood 8.9 mg/dL (8.5-10.1); Chloride, Blood 109 mmol/L (98-108); Creatinine, Blood 0.89 mg/dL (0.60-1.20); Glomerular Filtration Rate 92 (60-); Glucose, Blood 180 mg/dL (70-99); Magnesium, Blood 2.3 mg/dL (1.6-2.4); Phosphorus, Blood 4.4 mg/dL (2.5-4.9); Potassium, Blood 4.3 mmol/L (3.5-5.5); Sodium, Blood 141 mmol/L (136-145)
[2024-11-01 07:37] VITALS: BP 123/72
--- NOTE | 2024-11-01 14:08 | NUR ---
NO CHANGES FOR PT, A&OX4, VSS AND ON 1L NC, WITH TITRATION TO BASELINE, RA. PT HAS NO QUESTIONS OR CONCERNS AT THIS TIME.
[2024-11-01 15:49] VITALS: BP 111/67
[2024-11-01] MEDS ORDERED: LevoFLOXacin 750 MG Tab PO SCH (16:00)
[2024-11-01 19:41] VITALS: BP 111/76
[2024-11-02 04:13] VITALS: BP 121/86
--- NOTE | 2024-11-02 06:26 | NUR ---
SHIFT SUMMARY: A&Ox3, IRRITABLE BUT COOPERATIVE WITH CARES. VSS ON 2.5L NC. THIS MORNING THIS RN TITRATED OXYGEN, ON RA, PT O2 SATS WERE 98%. PER TELEMETRY PT IS SR @ 89. PT DID HAVE A NINE BEAT RUN OF SVT IN THE 160 S DURING A COUGHING SPELL. DENIES PAIN. PT IS UP AD CHIKI INDEPENDENTLY IN ROOM/BR. TOLERATING A CONS CARB DIET. CALLS APPROPRIATELY AND IS ABLE TO ADVOCATE NEEDS EFFECTIVELY. BED IN LOWEST POSITION, CALL LIGHT WITHIN REACH, ALL NEEDS MET. REPORT TO ONCOMING NURSE.
[2024-11-02 07:00] VITALS: BP 137/98
[2024-11-02] MEDS ORDERED: GUAI600T33 PO (13:58)
[2024-11-02] MEDS ORDERED: DOXY100 PO (13:58)
--- NOTE | 2024-11-02 15:43 | NUR ---
pt was discharged with instructions. pt has no questions or concerns with instructions or new medications.
== END 2024-11-02 15:39 | disposition home or self-care (01) | DRG 189 ==
LOC: ER 15:08 → ERHOLD 19:58 → MEDS 19:58
PROVIDERS: Emergency Medicine; Internal Medicine; Nurse Practitioner Acute Care; ADMIT Internal Medicine
DX: J96.01 Acute respiratory failure with hypoxia (principal); J44.1 Chronic obstructive pulmonary disease with (acute) exacerbation; Z59.00 Homelessness unspecified; T17.590A Other foreign object in bronchus causing asphyxiation, initial encounter; F20.0 Paranoid schizophrenia; D64.9 Anemia, unspecified; E87.1 Hypo-osmolality and hyponatremia; F15.10 Other stimulant abuse, uncomplicated; E11.9 Type 2 diabetes mellitus without complications; F17.210 Nicotine dependence, cigarettes, uncomplicated; Z71.6 Tobacco abuse counseling; R79.89 Other specified abnormal findings of blood chemistry; Z71.51 Drug abuse counseling and surveillance of drug abuser
CPT/HCPCS: 36415; 71046; 71260; 80048; 80053; 80069; 82947; 83036; 83735; 84145; 84484; 85025; 85027; 85379; 93005; 93010; 94640; 94664; 94760; 94762; 96365-59; 96375; 99285-25; A9270; J0456; J0696; J1650; J2919; J7050; J7512; Q9967